=== PATIENT | female | born 1995 | race Caucasian/White ===

== ENCOUNTER 2016-06-20 11:22 | Emergency (ER) | payer OTHER ==
--- NOTE | 2016-06-20 11:58 | ER Document Report ---
ED Medical Screen (RME) - General Chief Complaint: Foreign Body in Vagina Stated Complaint: VAGINAL PAIN TRAVEL OUTSIDE OF THE [place] IN LAST 30 DAYS: No - HPI Patient complains to provider of: tampon inside the vagina - Related Data Allergies/Adverse Reactions: No Known Allergies Allergy (Unverified 06/20/16 11:31) Past Medical History Renal/ Medical History: Denies: Hx Peritoneal Dialysis Review of Systems - Review of Systems Female Genitourinary: No symptoms reported - Vaginal foreign body Physical Exam - Vital signs Vitals: Temp Pulse Resp BP Pulse Ox 98.2 F 69 16 106/63 99 06/20/16 11:28 06/20/16 11:28 06/20/16 11:28 06/20/16 11:28 06/20/16 11:28 - General General appearance: Appears well In distress: None Course - Vital Signs Vital signs: Temp Pulse Resp BP Pulse Ox 98.2 F 69 16 106/63 99 06/20/16 11:28 06/20/16 11:28 06/20/16 11:28 06/20/16 11:28 06/20/16 11:28
[2016-06-20] MEDS ORDERED: LIDOCAINE 4%/TETRACAINE 0.5%/EPI 0.18% 5 ML TOPICAL SOLN TOP ONE (12:16)
--- NOTE | 2016-06-20 13:05 | ER Document Report ---
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 She can't get the tampon out because now there is a thin strip of tissue in the middle of the introitus preventing to tampon from exiting. She and her mother looked at this tissue and wanted to be cut so that the tampon will come out. She had seen Dr. [place] at [facility] during an attempted pelvic exam and they were unable to get the speculum in but the tissue preventing this could not be seen without the downward pressure of the tampon. Associated Symptoms: None Exacerbated by: Denies Relieved by: Denies Similar symptoms previously: No Recently seen / treated by doctor: No - ROS ROS below otherwise negative: Yes Systems Reviewed and Negative: Yes All other systems reviewed and negative - CARDIOVASCULAR Cardiovascular: DENIES: Chest pain - DERM Skin Color: Normal Past Medical History - General Information source: Patient, Parent - Social History Smoking Status: Never Smoker Chew tobacco use (# tins/day): No Frequency of alcohol use: None Drug Abuse: None Lives with: Parents Family History: Reviewed & Not Pertinent Patient has suicidal ideation: No Patient has homicidal ideation: No - Medical History Medical History: Negative Renal/ Medical History: Denies: Hx Peritoneal Dialysis Psychiatric Medical History: Reports: Hx Depression - Anxiety Surgical Hx: Negative - Immunizations Hx Diphtheria, Pertussis, Tetanus Vaccination: Yes Vertical Provider Document - CONSTITUTIONAL Agree With Documented VS: Yes Exam Limitations: No Limitations - INFECTION CONTROL TRAVEL OUTSIDE OF THE [place] IN LAST 30 DAYS: No - HEENT HEENT: Normocephalic - NECK Neck: Supple - RESPIRATORY O2 Sat by Pulse Oximetry: 99 - GI/ABDOMEN Gastrointestinal: Abdomen Soft, Abdomen Non-Tender - REPRODUCTIVE Notes: Hymen membrane midline which is taut and tampon protruding on either side of this midline tissue. - NEURO Level of Consciousness: Awake, Alert, Appropriate - DERM Integumentary: Warm, Dry Course - Re-evaluation Re-evalutation: 06/20/16 12:59 Procedure: L.E.T. applied to finn thin ribbon of tissue, after numb, betadine prep, #11 blade cut thinnest section of the tissue, and tampon popped out. pt much relieved. 06/20/16 21:18 - Vital Signs Vital signs: Temp Pulse Resp BP Pulse Ox 98.2 F 69 16 106/63 99 06/20/16 11:28 06/20/16 11:28 06/20/16 11:28 06/20/16 11:28 06/20/16 11:28 Discharge - Discharge Clinical Impression: tampon removal, obstructive finn tissue incised Condition: Good Disposition: HOME, SELF-CARE Additional Instructions: no tampons this menses bacitracin to introitus to er any concerns Please complete the patient satisfaction survey if you get one, and return it.. If you do not receive a survey, then you can go to the [facility] website, [email or web address] and place your comments about your very good care. Thank you very much. It was a pleasure being your medical provider today. Referrals: DIEGO MARR MD [Primary Care Provider] - Follow up as needed
[2016-06-20 13:19] VITALS: BP 107/55
== END 2016-06-20 13:13 | disposition home or self-care (01) ==
LOC: ER 11:22
PROC: 0UBKXZZ Excision of Hymen, External Approach (ICD-10-PCS; principal; 2016-06-20)
DX: T19.2XXA Foreign body in vulva and vagina, initial encounter (principal)
CPT/HCPCS: 99283